=== PATIENT | female | born 1970 | race Asian ===

== ENCOUNTER 2021-04-08 10:32 | Outpatient (CLI) | payer OTHER | END 2021-04-08 10:47 | disposition home or self-care (01) | LOC: RAD 10:32 | PROVIDERS: ATTEND Internal Medicine | DX: I10 Essential (primary) hypertension (principal); E03.8 Other specified hypothyroidism; G62.89 Other specified polyneuropathies; E66.8 Other obesity; Z01.811 Encounter for preprocedural respiratory examination ==

== ENCOUNTER 2021-05-05 10:47 | Outpatient (CLI) | payer OTHER | END 2021-05-05 11:11 | disposition home or self-care (01) | LOC: MAMO-SONO 10:47 | DX: N63.12 Unspecified lump in the right breast, upper inner quadrant (principal); N63.21 Unspecified lump in the left breast, upper outer quadrant; Z12.31 Encounter for screening mammogram for malignant neoplasm of breast ==

== ENCOUNTER 2021-12-29 12:26 | Outpatient (CLI) | payer OTHER | END 2021-12-29 12:28 | disposition home or self-care (01) | LOC: RAD 12:26 | PROVIDERS: ATTEND Physical Medicine & Rehabilitation | DX: M25.511 Pain in right shoulder (principal) ==

== ENCOUNTER 2023-05-30 11:04 | Outpatient (CLI) | payer OTHER | END 2023-05-30 11:14 | disposition home or self-care (01) | LOC: MAMO-SONO 11:04 | DX: Z12.31 Encounter for screening mammogram for malignant neoplasm of breast (principal); N63.0 Unspecified lump in unspecified breast; N64.4 Mastodynia ==

== ENCOUNTER 2023-11-11 09:21 | Outpatient (CLI) | payer OTHER | END 2023-11-11 09:32 | disposition home or self-care (01) | LOC: SONOGRAMA 09:21 | PROVIDERS: ATTEND Obstetrics & Gynecology | DX: N63.10 Unspecified lump in the right breast, unspecified quadrant (principal); N63.20 Unspecified lump in the left breast, unspecified quadrant ==

== ENCOUNTER 2023-11-11 11:10 | Outpatient (CLI) | payer OTHER ==
[2023-11-11 12:26] LABS: HEMATOCRIT 41.2 % (36.0-45.00); MEAN CELL VOLUME 92.7 fL (80.00-100.00); MEAN CORPUSCULAR HEMOGLOBIN 31.5 pg (27.00-32.0); PLATELET COUNT 247 K/uL (150-450); RED BLOOD COUNT 4.45 M/uL (4.00-6.00); RED CELL DISTRIBUTION WIDTH 13.5 % (11.5-14.5)
== END 2023-11-11 11:18 | disposition home or self-care (01) ==
LOC: LAB 11:10
PROVIDERS: ATTEND Obstetrics & Gynecology
DX: N91.2 Amenorrhea, unspecified (principal); E78.5 Hyperlipidemia, unspecified; E34.9 Endocrine disorder, unspecified; N95.1 Menopausal and female climacteric states; E23.6 Other disorders of pituitary gland; R19.00 Intra-abdominal and pelvic swelling, mass and lump, unspecified site; N39.0 Urinary tract infection, site not specified; N73.9 Female pelvic inflammatory disease, unspecified; A60.04 Herpesviral vulvovaginitis; Z34.90 Encounter for supervision of normal pregnancy, unspecified, unspecified trimester; K75.9 Inflammatory liver disease, unspecified; R73.9 Hyperglycemia, unspecified; Z20.822 Contact with and (suspected) exposure to COVID-19; A49.3 Mycoplasma infection, unspecified site; J11.1 Influenza due to unidentified influenza virus with other respiratory manifestations; D51.9 Vitamin B12 deficiency anemia, unspecified; D70.8 Other neutropenia; D84.1 Defects in the complement system

== ENCOUNTER 2024-08-09 13:11 | Outpatient (CLI) | payer OTHER | END 2024-08-09 13:23 | disposition home or self-care (01) | LOC: MAMO-SONO 13:11 | PROVIDERS: ATTEND Obstetrics & Gynecology | DX: N60.11 Diffuse cystic mastopathy of right breast (principal); N60.12 Diffuse cystic mastopathy of left breast; Z12.31 Encounter for screening mammogram for malignant neoplasm of breast ==

== ENCOUNTER 2024-09-12 15:41 | Emergency (ER) | payer OTHER ==
[~2024-09-12] VITALS: Ht 157.5 cm; Wt 43.1 kg
[2024-09-12] MEDS ORDERED: MONTELUKAST SODI4 M1 PO (16:10)
[2024-09-12 16:11] VITALS: BP 98/67; O2SAT 100
[2024-09-12] MEDS ORDERED: DEXAMETHASONE SODIUM PHOSPHATE 4 MG/ML VIAL IM ONE (17:15)
[2024-09-12] MEDS ORDERED: KETOROLAC TROMETHAMINE 60 MG VIAL IM ONE (17:15)
[2024-09-12] MEDS ORDERED: IBU600 MG PO (18:44)
== END 2024-09-12 20:47 | disposition home or self-care (01) ==
LOC: ER 15:43
DX: M26.629 Arthralgia of temporomandibular joint, unspecified side (principal); Z87.09 Personal history of other diseases of the respiratory system; Z88.8 Allergy status to other drugs, medicaments and biological substances

== ENCOUNTER 2025-05-13 10:02 | Outpatient (CLI) | payer OTHER ==
[~2025-05-13 10:02] MED LIST: IBU600 MG PO; MONTELUKAST SODI4 M1 PO
== END 2025-05-13 10:15 | disposition home or self-care (01) ==
LOC: SONOGRAMA 10:02
DX: N48.6 Induration penis plastica (principal)